=== PATIENT | female | born 1980 | race Caucasian/White ===

== ENCOUNTER → 2020-09-07 | Emergency (ER) | payer OTHER ==
[~2020-09-07] VITALS: Ht 165.1 cm; Wt 87.5 kg
[~2020-09-07] MED LIST: CHILDREN'S ASPI81 MG; PRENATABS FA T1 EACH
== END | disposition home or self-care (01) ==
LOC: ER 17:04 → EMR PED 17:04
DX: O26.893 Other specified pregnancy related conditions, third trimester (principal); O99.343 Other mental disorders complicating pregnancy, third trimester; F31.89 Other bipolar disorder; Z3A.34 34 weeks gestation of pregnancy